=== PATIENT | male | born 1995 | race Hispanic/Latino ===

== ENCOUNTER 2018-08-28 03:26 | Emergency (ER) | payer OTHER ==
[2018-08-28 03:48] VITALS: BMI 22.9
[2018-08-28 03:54] VITALS: O2SAT 100
[2018-08-28] MEDS ORDERED: Tdap Vaccine 0.5 ml Vial (10-64 yrs) IM ONE (03:55)
[2018-08-28] MEDS ORDERED: Bacitracin 500 Units/gm Oint Foilpak UD TOP STA (03:56)
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
[2018-08-28 07:09] VITALS: BP 120/60; PULSE 78; RESP 16; TEMP 98.2
== END 2018-08-28 04:30 | disposition home or self-care (01) ==
LOC: H.ER 03:26
DX: S01.81XA Laceration without foreign body of other part of head, initial encounter (principal); W22.8XXA Striking against or struck by other objects, initial encounter; Y99.0 Civilian activity done for income or pay; Z88.0 Allergy status to penicillin

== ENCOUNTER 2018-11-16 18:40 | Emergency (ER) | payer BC, OTHER ==
[2018-11-16 18:40] VITALS: BMI 22.9
[2018-11-16 19:12] VITALS: BP 127/65; PULSE 97; RESP 18; TEMP 98.2; O2SAT 100
--- NOTE | 2018-11-16 20:00 | ED PDOC ---
Upper Extremity Pain/Injury Time Seen by Provider: 11/16/18 19:13 Chief Complaint (Nursing): Upper Extremity Problem/Injury Chief Complaint (Provider): Upper Extremity Problem/Injury History Per: Patient History/Exam Limitations: no limitations Onset/Duration Of Symptoms: Hrs (x6) Current Symptoms Are (Timing): Still Present Quality: "Pain" Additional Complaint(s): 23 year old male with no PMHx presents to the ED with a left wrist injury about x6 hours ago. Patient states he was snowboarding when he went off a ramp, fell down and sustained an injury to left wrist. He states he had x3 fractures in the past that did not require surgery. PMD: no regular doctor Past Medical History Reviewed: Historical Data, Nursing Documentation, Vital Signs Vital Signs: Last Vital Signs Temp 98.2 F 11/16/18 19:07 Pulse 97 H 11/16/18 19:07 Resp 18 11/16/18 19:07 BP 127/65 11/16/18 19:07 Pulse Ox 100 11/16/18 19:07 - Medical History PMH: No Chronic Diseases - Surgical History Surgical History: No Surg Hx - Family History Family History: States: Unknown Family Hx - Social History Alcohol: Social - Immunization History Hx Tetanus Toxoid Vaccination: Yes - Allergies Allergies/Adverse Reactions: Allergies Allergy/AdvReac Type Severity Reaction Status Date / Time Penicillins Allergy RASH Verified 11/16/18 19:12 Review of Systems ROS Statement: Except As Marked, All Systems Reviewed And Found Negative Musculoskeletal: Positive for: Other (left wrist pain ) Physical Exam - Reviewed Nursing Documentation Reviewed: Yes Vital Signs Reviewed: Yes - Physical Exam Appears: Positive for: No Acute Distress Head Exam: Positive for: ATRAUMATIC, NORMOCEPHALIC Skin: Positive for: Normal Color, Warm, Dry Eye Exam: Positive for: Normal appearance, EOMI, PERRL Pulses-Radial (L): 2+ Pulses-Radial (R): 2+ Extremity: Positive for: Capillary Refill (less than two seconds), Other (mild swelling and tenderness on dorsal surface of left wrist, no break in skin integrity, distal sensation intact, able to actively move all fingers in left hand.). Negative for: Deformity Neurologic/Psych: Positive for: Alert, Oriented (x3) - ECG O2 Sat by Pulse Oximetry: 100 (RA) Pulse Ox Interpretation: Normal - Radiology X-Ray: Interpreted by Me (Wrist xray) X-Ray Interpretation: Other (non-displaced distal radius fx) Medical Decision Making Medical Decision Making: Time: 1919 Plan: --Left wrist XR --Offered pain meds but refused Case d/w Dr. Kim who agrees with plan and care. Requests that f/u in his office tomorrow at 0900. Pt. informed of plan and agrees with care. Scribe Attestation: Documented by Enriqueta Sanchez, acting as a scribe for Lalo Jacobs PA-C Provider Scribe Attestation: All medical record entries made by the Scribe were at my direction and personally dictated by me. I have reviewed the chart and agree that the record accurately reflects my personal performance of the history, physical exam, medical decision making, and the department course for this patient. I have also personally directed, reviewed, and agree with the discharge instructions and disposition. Procedures - Time-Out Type of Procedure: Splint placement Site of Procedure: L arm Correct Patient: Yes Correct Procedure: Yes Correct Site Marked: Yes X-Ray Marked: Yes PA/Tech: Reynaldo VALLADARES - Splinting Location: L arm Hand-Made Type: orthoglass Splint: sugar-tong Pre-Proc Neuro Vasc Exam: normal Post-Proc Neuro Vasc Exam: normal Progress: Sling applied. Disposition - Clinical Impression Clinical Impression: Wrist fracture - Patient ED Disposition Is Patient to be Admitted: No - Disposition Referrals: Lenard Kim MD [Medical Doctor] - [facility] [Outside] Disposition: Routine/Home Disposition Time: 19:50 Condition: STABLE Additional Instructions: FOLLOW UP WITH DR. LENARD KIM TOMORROW WITHOUT FAIL RETURN TO ED IMMEDIATELY IF SYMPTOMS WORSEN SLOAN NASSAR, thank you for letting us take care of you today. Your provider was Ruel Jane MD and you were treated for FALL: WRIST INJURY. The emergency medical care you received today was directed at your acute symptoms. If you were prescribed any medication, please fill it and take as directed. It may take several days for your symptoms to resolve. Return to the Emergency Department if your symptoms worsen, do not improve, or if you have any other problems. Please contact your doctor or call one of the physicians/clinics you have been referred to that are listed on the Patient Visit Information form that is included in your discharge packet. Bring any paperwork you were given at discharge with you along with any medications you are taking to your follow up visit. Our treatment cannot replace ongoing medical care by a primary care provider outside of the emergency department. Thank you for allowing the [facility] team to be part of your care today. If you had an X-Ray or CT scan: A Radiologist will review the ED reading if any change in treatment is needed we will contact you. If you had a blood, urine, or wound culture: It will take several days for the results, if any change in treatment is needed we will contact you. If you had an STI test: It will take 48 hours for the results. Please call after 1 week if you have not heard back. Instructions: Wrist Fracture (DC) Forms: [employer] (Turkmen), [facility] ED School/Work Excuse
--- NOTE | 2018-11-17 10:31 | RAD ---
Date of service: 11/16/2018 PROCEDURE: Left Wrist Radiographs. HISTORY: Trauma COMPARISON: None. FINDINGS: BONES: Normal. No fracture. JOINTS: Normal. No dislocation. SOFT TISSUES: Normal. OTHER FINDINGS: None. IMPRESSION: No evidence of acute displaced fracture nor dislocation
== END 2018-11-16 20:29 | disposition home or self-care (01) ==
LOC: H.ER 18:40
DX: S62.92XA Unspecified fracture of left hand, initial encounter for closed fracture (principal); W19.XXXA Unspecified fall, initial encounter; Y92.89 Other specified places as the place of occurrence of the external cause; Z88.0 Allergy status to penicillin